=== PATIENT | female | born 1980 | race Hispanic/Latino ===

== ENCOUNTER 2019-07-15 22:57 | Emergency (ER) | payer OTHER ==
[2019-07-15 23:22] LABS: Bilirubin Negative (Negative); Blood, Urine Trace (Negative); Clarity Slightly Cloudy (Clear); Glucose, Urine (Dipstick) Negative (Negative); Leukocyte Negative (Negative); Nitrite Negative (Negative); Protein, Urine (Dipstick) 30 mg/dL (Neg-Trace)
[2019-07-15 23:23] LABS: Bacteria/HPF None Seen HPF (None Seen)
[2019-07-15] MEDS ORDERED: Ibuprofen 800 MG TAB ONE (23:29)
[2019-07-15] MEDS ORDERED: Acetaminophen 500 MG TAB ONE (23:29)
== END 2019-07-15 23:35 | disposition home or self-care (01) ==
LOC: MADERS 22:57
DX: M54.5 Low back pain (principal); F17.210 Nicotine dependence, cigarettes, uncomplicated
CPT/HCPCS: 81003; 81015; 99283

== ENCOUNTER 2019-11-10 23:05 | Emergency (ER) | payer OTHER ==
[2019-11-10 23:40] LABS: Bilirubin Negative (Negative); Blood, Urine Negative (Negative); Clarity Clear (Clear); Glucose, Urine (Dipstick) Negative (Negative); Leukocyte Negative (Negative); Nitrite Negative (Negative); Protein, Urine (Dipstick) Negative (Neg-Trace)
[2019-11-10 23:48] LABS: #Basophils 0.1 thou/uL (0.0-0.2); #Eosinphils 0.3 thou/uL (0.0-0.7); #Lymphocytes 3.4 thou/uL (1.20-3.40); #Monocytes 0.8 thou/uL (0.11-0.59); #Neutrophils 12.2 thou/uL (1.40-6.50); %Basophils 0.7 % (0.0-1.0); %Eosinophils 1.6 % (0.0-10.0); %Lymphocytes 20.4 % (21.0-51.0); %Monocytes 4.6 % (0.0-10.0); %Neutrophils 72.7 % (42.0-75.0); Hemoglobin 13.2 g/dL (12.0-16.0); Mean Corpuscular HGB CONC 32.2 g/dL (32.0-36.0); Mean Corpuscular Hemoglobin 31.2 pg (27.0-31.0); Mean Corpuscular Volume 96.9 fL (78.0-98.0); Mean Platelet Volume 9.9 fL (7.4-10.4); Platelet Count 306 thou/uL (130-400); RBC Distribution Width 12.2 % (11.5-14.5); Red Blood Cell (RBC) Count 4.23 mill/uL (4.20-5.40); White Blood Cell (WBC) Count 16.8 thou/uL (4.8-10.8)
[2019-11-11] LABS: BHCG - Serum Negative (NEGATIVE); Pregs Control Background? CLEAR/WHITE (CLR/WHITE); Pregs Control Bar Appear? YES (CONTROL BAR)
[2019-11-11 00:03] LABS: ALT (SGPT) 18 U/L (8-55); AST (SGOT) 25 U/L (5-34); Alkaline Phosphatase 65 U/L (40-110); Anion Gap 12 mmol/L (10-20); BUN (Urea Nitrogen) 15 mg/dL (7.0-18.7); Bilirubin, Total 0.2 mg/dL (0.2-1.2); Calc. Creatinine Clearance 0 mL/min (70-130); Calcium 9.1 mg/dL (7.8-10.44); Carbon Dioxide 26 mmol/L (22-29); Chloride 107 mmol/L (98-107); Estimated GFR-MDRD Greater than 90; Globulin 2.8 g/dL (2.4-3.5); Glucose 94 mg/dL (70-105); Lipase 32 U/L (8-78); Protein, Total 6.8 g/dL (6.0-8.3); Sodium 141 mmol/L (136-145)
--- NOTE | 2019-11-11 07:57 | CT ---
CT OF THE ABDOMEN AND PELVIS WITHOUT IV CONTRAST: INDICATION: History of abdominal pain. COMPARISON: None. FINDINGS: Lung bases are clear. Unopacified liver, pancreas, adrenal glands, and spleen are normal-appearing. No renal or ureteral calculus is evident. No hydronephrosis is demonstrated. No free fluid or enlarged lymph nodes are evident. There are mild vascular calcifications involving the abdominal aorta. There is a normal appendix in the right lower quadrant. There is wall thickening with scattered colo elvis diverticula involving the sigmoid colon. Some of the wall thickening could be related to under d istention. No drainable fluid collection is evident. Reproductive structures, bladder, rectum, and pararectal soft tissues are unremarkable appearing. No definite acute osseous abnormality is evident. There is scattered degenerative and osteoarthritic change. IMPRESSION: 1. Suggestive wall thickening with scattered colonic diverticula involving the sigmoid colon possibl y related to mild colonic diverticulitis. Recommend correlation with the clinical examination. Some of the wall thickening could be related to under distention of the sigmoid colon. 2. No renal or ureteral calculus. POS: BH
== END 2019-11-11 01:06 | disposition home or self-care (01) ==
LOC: MADERS 23:05
DX: R10.13 Epigastric pain (principal); F17.210 Nicotine dependence, cigarettes, uncomplicated
CPT/HCPCS: 74176; 80053; 81003; 83690; 84703; 85025

== ENCOUNTER 2020-07-05 18:27 | Emergency (ER) | payer OTHER, SELFPAY ==
[2020-07-05] MEDS ORDERED: Azithromycin 250 MG TAB ONE (19:03)
== END 2020-07-05 19:06 | disposition home or self-care (01) ==
LOC: MADERS 18:27
DX: J02.0 Streptococcal pharyngitis (principal); F17.210 Nicotine dependence, cigarettes, uncomplicated
CPT/HCPCS: 99282

== ENCOUNTER 2022-06-10 16:29 | Outpatient (CLI) | payer OTHER ==
[2022-06-10 17:25] LABS: ALT (SGPT) 9 U/L (8-55); AST (SGOT) 11 U/L (5-34); Alkaline Phosphatase 67 U/L (40-110); Anion Gap 17 mmol/L (10-20); BUN (Urea Nitrogen) 16 mg/dL (7.0-18.7); Bilirubin, Total 0.2 mg/dL (0.2-1.2); Calc. Creatinine Clearance 0 mL/min (70-130); Calcium 8.7 mg/dL (7.8-10.44); Carbon Dioxide 21 mmol/L (22-29); Chloride 108 mmol/L (98-107); Estimated GFR 111; Globulin 3.1 g/dL (2.4-3.5); Glucose 88 mg/dL (70-105); Potassium 3.8 mmol/L (3.5-5.1); Protein, Total 7.1 g/dL (6.0-8.3); Sodium 142 mmol/L (136-145)
[2022-06-10 18:32] LABS: #Basophils 0.1 thou/uL (0.0-0.2); #Eosinphils 0.3 thou/uL (0.0-0.7); #Lymphocytes 4.3 thou/uL (1.20-3.40); #Monocytes 0.7 thou/uL (0.11-0.59); #Neutrophils 9.7 thou/uL (1.40-6.50); %Basophils 0.9 % (0.0-1.0); %Lymphocytes 28.3 % (21.0-51.0); %Monocytes 4.6 % (0.0-10.0); %Neutrophils 64.3 % (42.0-75.0); Giant Platelets SLIGHT; Hemoglobin 13.8 g/dL (12.0-16.0); Large Platelets SLIGHT; MDiff Complete? YES; Mean Corpuscular HGB CONC 32.6 g/dL (32.0-36.0); Mean Corpuscular Hemoglobin 30.5 pg (27.0-31.0); Mean Corpuscular Volume 93.4 fL (78.0-98.0); Mean Platelet Volume 12.9 fL (7.4-10.4); Platelet Count 273 thou/uL (130-400); Platelet Morphology Comment Appears Adequate; Red Blood Cell (RBC) Count 4.53 mill/uL (4.20-5.40); White Blood Cell (WBC) Count 15.2 thou/uL (4.8-10.8)
== END 2022-06-10 16:30 | disposition home or self-care (01) ==
LOC: MADLABSP 16:29
PROVIDERS: ATTEND Family Medicine
DX: K22.4 Dyskinesia of esophagus (principal); R10.11 Right upper quadrant pain
CPT/HCPCS: 80053; 85025

== ENCOUNTER 2024-09-21 23:43 | Emergency (ER) | payer BC | END 2024-09-21 23:57 | disposition left against medical advice (07) | LOC: MADERS 23:43 | DX: Z53.21 Procedure and treatment not carried out due to patient leaving prior to being seen by health care provider (principal) ==

== ENCOUNTER 2024-11-24 07:59 | Emergency (ER) | payer BC ==
[2024-11-24] MEDS ORDERED: Acetaminophen 325 MG TAB ONE ×2 (08:11→08:15)
[2024-11-24] MEDS ORDERED: Ondansetron ODT 4 MG TAB ONE (08:11)
== END 2024-11-24 08:44 | disposition home or self-care (01) ==
LOC: MADERS 07:59
DX: J10.1 Influenza due to other identified influenza virus with other respiratory manifestations (principal)
CPT/HCPCS: 87428; 99283; Q0162

== ENCOUNTER 2025-07-16 13:28 | Emergency (ER) | payer BC ==
[2025-07-16 14:23] LABS: BHCG - Serum Negative (NEGATIVE); Pregs Control Background? CLEAR/WHITE (CLR/WHITE); Pregs Control Bar Appear? YES (CONTROL BAR)
[2025-07-16 14:48] LABS: Anion Gap 14 mmol/L (10-20); BUN (Urea Nitrogen) 12 mg/dL (7.0-18.7); Bilirubin, Total 0.2 mg/dL (0.3-1.2); Calc. Creatinine Clearance 0 mL/min (70-130); Calcium 8.9 mg/dL (7.6-10.4); Carbon Dioxide 22 mmol/L (22-29); Chloride 108 mmol/L (98-107); Glucose 97 mg/dL (70-105); Potassium 3.8 mmol/L (3.5-5.1); Sodium 140 mmol/L (136-145)
[2025-07-16 14:49] LABS: ALT (SGPT) 17 U/L (Less than 34); AST (SGOT) 19 U/L (11-34); Albumin 3.7 g/dL (3.1-4.5); Alkaline Phosphatase 53 U/L (40-110); Globulin 3.0 g/dL (2.4-3.5)
[2025-07-16 14:52] LABS: Hematocrit 42.5 % (36.0-47.0); Hemoglobin 13.9 g/dL (12.0-16.0); Mean Corpuscular Hemoglobin 31.1 pg (27.0-31.0); Mean Corpuscular Volume 95.2 fl (78.0-98.0); Platelet Count 317 10x3/uL (130-400); Red Blood Cell (RBC) Count 4.46 mill/uL (4.20-5.40); White Blood Cell (WBC) Count 11.1 10x3/uL (4.8-10.8)
[2025-07-16 14:53] LABS: #Basophils 0.2 thou/uL (0.0-0.2); #Eosinophils 0.3 thou/uL (0.0-0.7); #Lymphocytes 3.9 thou/uL (1.20-3.40); #Monocytes 0.7 thou/uL (0.11-0.59); #Neutrophils 6.1 thou/uL (1.40-6.50); %Basophils 1.4 % (0.0-1.0); %Eosinophils 2.3 % (0.0-10.0); %Lymphocytes 35.4 % (21.0-51.0); %Monocytes 6.2 % (0.0-10.0); %Neutrophils 54.8 % (42.0-75.0)
== END 2025-07-16 15:03 | disposition home or self-care (01) ==
LOC: MADERS 13:28
DX: M79.89 Other specified soft tissue disorders (principal); F17.210 Nicotine dependence, cigarettes, uncomplicated
CPT/HCPCS: 36415; 80053; 83880; 84703; 85025; 99283